=== PATIENT | male | born 1945 | race Caucasian/White ===

== ENCOUNTER 2023-02-03 20:11 | Inpatient (IN) | payer OTHER ==
[~2023-02-03] VITALS: Ht 172.7 cm; Wt 80.8 kg
[~2023-02-03 20:11] MED LIST: ALLO-97 PO; ASPI-1450 PO; ATOR40TA28 PO; CALC0.253 PO; CARV25 PO; DOCU-385 PO; FLUO10CA24 PO; FOLI0.8T21 PO; FURO80 PO; GENT30CR TP; INSU100V SQ; LEVE500T8 PO; LOSA-381 PO; NPH,100V SQ; OMEP20 PO; ONDA-104 PO; SENN-376 PO; SEVE0.8P6 PO; [UNRECOGNIZED DRUG - CODE] TP
[2023-02-03] MEDS ORDERED: PIPERACILLIN/TAZO 3.375 GM/D5W 50 ML IV ONE (20:30)
[2023-02-03] MEDS ORDERED: 0.9% SODIUM CHLORIDE 10 ML SYRINGE IVP PRN (20:30)
[2023-02-03] MEDS ORDERED: SODIUM CHLORIDE 0.9% 2,000 ML IV ONE (20:30)
[2023-02-03] MEDS ORDERED: ACETAMINOPHEN 1000 MG/ISO-OSM 100 ML IV ONE (20:45)
[2023-02-03 21:21] LABS: BASOPHILS % (AUTO) 0.7 % (0.0-2.0); EOSINOPHILS % (AUTO) 3.8 % (1.0-6.0); HEMATOCRIT 31.5 % (41-53); HEMOGLOBIN 10.2 g/dL (13.5-17.5); LYMPHOCYTES # (AUTO) 3.7 K/uL (1.0-4.8); LYMPHOCYTES % (AUTO) 38.3 % (22.0-44.0); MEAN CORPUSCULAR HEMOGLOBIN 33.3 pg (26.0-34.0); MEAN CORPUSCULAR HGB CONC 32.2 G/dL (31.0-37.0); MEAN CORPUSCULAR VOLUME 104 fL (80-100); MONOCYTES # (AUTO) 0.7 K/uL (0.1-1.0); MONOCYTES % (AUTO) 7.4 % (2.0-9.0); NEUTROPHILS # (AUTO) 4.8 K/uL (1.8-7.7); NEUTROPHILS % (AUTO) 49.8 % (40.0-70.0); PLATELET COUNT (AUTO) 319 K/uL (150-450); RED BLOOD CELL COUNT(AUTO) 3.05 MIL/uL (4.50-5.90); RED CELL DISTRIBUTION WIDTH 17.1 % (11.5-14.5); WHITE BLOOD COUNT (AUTO) 9.6 K/uL (4.5-11.0)
[2023-02-03 21:30] LABS: CALCIUM, TOTAL 9.4 mg/dL (8.8-10.5); CREATININE 11.4 mg/dL (0.60-1.30); POTASSIUM 4.9 mmol/L (3.5-5.1)
[2023-02-03 21:32] LABS: INR 0.9 (0.9-1.1); PROTHROMBIN TIME 9.8 SEC (9.4-11.6)
[2023-02-03 21:38] LABS: LACTIC ACID 0.9 mmol/L (0.4-2.0)
[2023-02-03 21:41] LABS: TROPONIN I-HIGH SENSITIVITY 90 ng/L (<76)
[2023-02-03 21:45] LABS: ALBUMIN 2.1 g/dL (3.4-5.0); BILIRUBIN,TOTAL 0.3 mg/dL (0.1-1.0); TOTAL PROTEIN, SERUM 5.7 g/dL (6.4-8.2)
[2023-02-03] MEDS ORDERED: ACETAMINOPHEN 325 MG TABLET PO PRN (22:00)
[2023-02-03] MEDS ORDERED: DEXTROSE 50%-WATER 25 GM/50 ML SYRINGE IVP PRN (22:00)
[2023-02-03] MEDS ORDERED: SENNOSIDES 8.6 MG TABLET PO PRN (22:00)
[2023-02-03] MEDS: NiCARDipine HCL 25 MG in SODIUM CHLORIDE 0.9% 240 ML IV PRN (22:26)
[2023-02-03] MEDS ORDERED: ASPIRIN 81 MG CHEWABLE TABLET PO ONE (22:30)
[2023-02-03 22:47] LABS: APPEARANCE,URINE CLEAR (CLEAR); BILIRUBIN,URINE NEGATIVE (NEGATIVE); COLOR,URINE LIGHT YELLOW (YELLOW); GLUCOSE, URINE (UA) 150-200 mg/dL (NEGATIVE); KETONES,URINE NEGATIVE (NEGATIVE); LEUKOCYTE ESTERASE ,URINE NEGATIVE (NEGATIVE); NITRATE,URINE NEGATIVE (NEGATIVE); OCCULT BLOOD,URINE MODERATE (NEGATIVE); PH,URINE 7.5 (5.0-8.0); PROTEIN,URINE >600,SEE CONFIRM mg/dL (NEGATIVE); SPECIFIC GRAVITIY, URINE 1.012 (1.003-1.030); UROBILINOGEN,URINE <=1.0 mg/dL (<=1.0)
[2023-02-03 22:49] LABS: COVID AG,FIA SOURCE NASOPHARYNGEAL
[2023-02-03 22:55] LABS: BACTERIA,URINE None Seen /HPF (None Seen); SQUAMOUS EPITHELIAL CELL,UR None Seen /LPF (None Seen); SULFOSALICYLIC ACID,URINE 3+ (Negative); WBC,URINE None Seen /HPF (0-5)
[2023-02-03] MEDS: HEPARIN SODIUM,PORCINE 5,000 UNITS/ML VIAL SQ SCH (22:59)
[2023-02-03 23:10] LABS: SARS-COV2 (COVID) ANTIGEN,FIA Negative (Negative)
[2023-02-03 23:12] LABS: INFLUENZA TYPE A NEGATIVE FOR TYPE A (NEGATIVE); INFLUENZA TYPE B NEGATIVE FOR TYPE B (NEGATIVE)
[2023-02-04 01:04] LABS: TROPONIN I-HIGH SENSITIVITY 120 ng/L (<76)
[2023-02-04 04:30] LABS: TROPONIN I-HIGH SENSITIVITY 105 ng/L (<76)
[2023-02-04] MEDS: NiCARDipine HCL 25 MG in SODIUM CHLORIDE 0.9% 240 ML IV PRN (07:27)
[2023-02-04] MEDS: SEVELAMER CARBONATE 800 MG TABLET PO SCH ×3 (08:00→18:21)
[2023-02-04] MEDS: HEPARIN SODIUM,PORCINE 5,000 UNITS/ML VIAL SQ SCH ×2 (08:00→16:09)
[2023-02-04] MEDS: INSULIN GLARGINE,HUM.REC.ANLOG 100 UNITS/ML SQ SCH ×2 (09:00→21:00)
[2023-02-04] MEDS: CARVEDILOL 25 MG TABLET PO SCH ×2 (09:00→21:27)
[2023-02-04] MEDS: ONDANSETRON HCL 4 MG TABLET PO SCH ×2 (09:00→21:27)
[2023-02-04 11:52] VITALS: BP 138/88; PULSE 69; RESP 18; TEMP 97.5
[2023-02-04] MEDS: OMEPRAZOLE 20 MG CAPSULE PO SCH (13:27)
[2023-02-04] MEDS: LevETIRAcetam 500 MG TABLET PO SCH ×2 (13:28→21:27)
[2023-02-04] MEDS: ATORVASTATIN CALCIUM 40 MG TABLET PO SCH (13:28)
[2023-02-04] MEDS: AmLODIPine BESYLATE 10 MG TABLET PO SCH (13:29)
[2023-02-04] MEDS: LOSARTAN POTASSIUM 25 MG TABLET PO SCH (13:29)
[2023-02-04] MEDS: DOCUSATE SODIUM 100 MG CAPSULE PO SCH ×2 (13:29→21:27)
[2023-02-04] MEDS: ASPIRIN 81 MG CHEWABLE TABLET PO SCH (13:29)
[2023-02-04] MEDS: FUROSEMIDE 80 MG TABLET PO SCH ×2 (14:38→21:27)
[2023-02-04] MEDS: FLUoxetine HCL 10 MG CAPSULE PO SCH (14:38)
[2023-02-04] MEDS: ALLOPURINOL 100 MG TABLET PO SCH (14:39)
[2023-02-04] MEDS: CALCITRIOL 0.25 MCG CAPSULE PO SCH (14:39)
[2023-02-04] MEDS: FOLIC ACID/VIT B COMPLEX AND C TABLET PO SCH (16:09)
[2023-02-04] MEDS: BETAMETHASONE VAL 0.1% 15 GM CREAM TP SCH ×2 (16:14→21:28)
[2023-02-04] MEDS: GENTAMICIN SULFATE 0.1% 15 GM CREAM TP SCH (16:15)
[2023-02-04 20:04] VITALS: BP 168/74; PULSE 64; RESP 16; TEMP 98.2
[2023-02-05] VITALS (8 sets, daily range): BP systolic 135–200; BP diastolic 59–85; PULSE 59–80; RESP 17–20; TEMP 97.4–98
[2023-02-05] MEDS: HEPARIN SODIUM,PORCINE 5,000 UNITS/ML VIAL SQ SCH ×3 (00:37→15:44)
[2023-02-05] MEDS: INSULIN LISPRO 100 UNITS/ML SQ PRN (06:52)
[2023-02-05] MEDS: OMEPRAZOLE 20 MG CAPSULE PO SCH (08:31)
[2023-02-05] MEDS: FOLIC ACID/VIT B COMPLEX AND C TABLET PO SCH (08:33)
[2023-02-05] MEDS: AmLODIPine BESYLATE 10 MG TABLET PO SCH (08:33)
[2023-02-05] MEDS: LOSARTAN POTASSIUM 25 MG TABLET PO SCH ×2 (08:37→20:35)
[2023-02-05] MEDS: ASPIRIN 81 MG CHEWABLE TABLET PO SCH (08:37)
[2023-02-05] MEDS: LevETIRAcetam 500 MG TABLET PO SCH ×2 (08:37→20:35)
[2023-02-05] MEDS: ATORVASTATIN CALCIUM 40 MG TABLET PO SCH (08:37)
[2023-02-05] MEDS: CALCITRIOL 0.25 MCG CAPSULE PO SCH (08:37)
[2023-02-05] MEDS: FLUoxetine HCL 10 MG CAPSULE PO SCH (08:37)
[2023-02-05] MEDS: SEVELAMER CARBONATE 800 MG TABLET PO SCH ×3 (08:37→18:05)
[2023-02-05] MEDS: ALLOPURINOL 100 MG TABLET PO SCH (08:37)
[2023-02-05] MEDS: ONDANSETRON HCL 4 MG TABLET PO SCH ×2 (08:38→20:35)
[2023-02-05] MEDS: CARVEDILOL 25 MG TABLET PO SCH ×2 (08:38→20:35)
[2023-02-05] MEDS: FUROSEMIDE 80 MG TABLET PO SCH ×2 (08:38→20:35)
[2023-02-05 08:46] LABS: GLUCOMETER DEV NAME(LOC) 5S.2C; GLUCOSE,POINT OF CARE 115 MG/DL (70-110)
[2023-02-05 08:46] LABS: GLUCOMETER DEV NAME(LOC) 5S.1B; GLUCOSE,POINT OF CARE 138 MG/DL (70-110)
[2023-02-05 08:46] LABS: GLUCOMETER DEV NAME(LOC) 5S.2C; GLUCOSE,POINT OF CARE 126 MG/DL (70-110)
[2023-02-05] MEDS: DOCUSATE SODIUM 100 MG CAPSULE PO SCH ×2 (08:47→20:35)
[2023-02-05] MEDS: GENTAMICIN SULFATE 0.1% 15 GM CREAM TP SCH (09:00)
[2023-02-05] MEDS: BETAMETHASONE VAL 0.1% 15 GM CREAM TP SCH ×2 (09:00→20:51)
[2023-02-05 09:26] LABS: BASOPHILS % (AUTO) 0.6 % (0.0-2.0); EOSINOPHILS % (AUTO) 3.8 % (1.0-6.0); HEMATOCRIT 33.8 % (41-53); HEMOGLOBIN 10.8 g/dL (13.5-17.5); LYMPHOCYTES % (AUTO) 25.9 % (22.0-44.0); MEAN CORPUSCULAR HEMOGLOBIN 32.9 pg (26.0-34.0); MEAN CORPUSCULAR HGB CONC 31.9 G/dL (31.0-37.0); MEAN CORPUSCULAR VOLUME 103 fL (80-100); MONOCYTES # (AUTO) 0.9 K/uL (0.1-1.0); MONOCYTES % (AUTO) 8.1 % (2.0-9.0); NEUTROPHILS # (AUTO) 7.1 K/uL (1.8-7.7); NEUTROPHILS % (AUTO) 61.6 % (40.0-70.0); PLATELET COUNT (AUTO) 314 K/uL (150-450); RED BLOOD CELL COUNT(AUTO) 3.28 MIL/uL (4.50-5.90); RED CELL DISTRIBUTION WIDTH 16.9 % (11.5-14.5); WHITE BLOOD COUNT (AUTO) 11.5 K/uL (4.5-11.0)
[2023-02-05 09:29] LABS: RBC MORPHOLOGY COMMENT ABNORMAL RBC MORPH
[2023-02-05] MEDS ORDERED: GENTAMICIN SULFATE 0.1% 15 GM CREAM TP SCH (09:30)
[2023-02-05 09:39] LABS: CALCIUM, TOTAL 9.3 mg/dL (8.8-10.5); CREATININE 10.36 mg/dL (0.60-1.30); POTASSIUM 4.4 mmol/L (3.5-5.1)
[2023-02-05 09:43] LABS: PHOSPHORUS 4.7 mg/dL (2.5-4.9)
[2023-02-05] MEDS: INSULIN GLARGINE,HUM.REC.ANLOG 100 UNITS/ML SQ SCH ×2 (12:26→20:38)
[2023-02-05] MEDS: CloNIDine HCL 0.1 MG TABLET PO PRN (12:38)
[2023-02-05 15:41] LABS: GLUCOMETER DEV NAME(LOC) 5N.1C; GLUCOSE,POINT OF CARE 88 MG/DL (70-110)
[2023-02-05 15:41] LABS: GLUCOMETER DEV NAME(LOC) 5N.1C; GLUCOSE,POINT OF CARE 371 MG/DL (70-110)
[2023-02-05 16:55] LABS: GLUCOMETER DEV NAME(LOC) 5N.1C; GLUCOSE,POINT OF CARE 100 MG/DL (70-110)
[2023-02-06] VITALS (8 sets, daily range): BP systolic 128–162; BP diastolic 57–81; PULSE 60–77; RESP 18–19; TEMP 97.5–98.2
[2023-02-06] MEDS: HEPARIN SODIUM,PORCINE 5,000 UNITS/ML VIAL SQ SCH ×3 (00:45→17:41)
[2023-02-06] MEDS: CloNIDine HCL 0.1 MG TABLET PO PRN (01:31)
[2023-02-06] MEDS: INSULIN LISPRO 100 UNITS/ML SQ PRN ×4 (06:21→20:48)
[2023-02-06] MEDS: DOCUSATE SODIUM 100 MG CAPSULE PO SCH ×2 (08:43→20:37)
[2023-02-06] MEDS: AmLODIPine BESYLATE 10 MG TABLET PO SCH (08:43)
[2023-02-06] MEDS: LevETIRAcetam 500 MG TABLET PO SCH ×2 (08:43→20:37)
[2023-02-06] MEDS: SEVELAMER CARBONATE 800 MG TABLET PO SCH ×3 (08:43→17:59)
[2023-02-06] MEDS: ASPIRIN 81 MG CHEWABLE TABLET PO SCH (08:43)
[2023-02-06] MEDS: ONDANSETRON HCL 4 MG TABLET PO SCH ×2 (08:44→20:37)
[2023-02-06] MEDS: FLUoxetine HCL 10 MG CAPSULE PO SCH (08:44)
[2023-02-06] MEDS: LOSARTAN POTASSIUM 25 MG TABLET PO SCH ×2 (08:44→20:38)
[2023-02-06] MEDS: FOLIC ACID/VIT B COMPLEX AND C TABLET PO SCH (08:44)
[2023-02-06] MEDS: CARVEDILOL 25 MG TABLET PO SCH ×2 (08:44→20:37)
[2023-02-06] MEDS: ALLOPURINOL 100 MG TABLET PO SCH (08:44)
[2023-02-06] MEDS: OMEPRAZOLE 20 MG CAPSULE PO SCH (08:44)
[2023-02-06] MEDS: FUROSEMIDE 80 MG TABLET PO SCH ×2 (08:44→20:37)
[2023-02-06] MEDS: GENTAMICIN SULFATE 0.1% 15 GM CREAM TP SCH (08:45)
[2023-02-06] MEDS: BETAMETHASONE VAL 0.1% 15 GM CREAM TP SCH ×2 (08:45→20:39)
[2023-02-06] MEDS ORDERED: CALCITRIOL 0.25 MCG CAPSULE PO ONE (09:00)
[2023-02-06] MEDS: INSULIN GLARGINE,HUM.REC.ANLOG 100 UNITS/ML SQ SCH ×2 (09:06→20:47)
[2023-02-06] MEDS: ATORVASTATIN CALCIUM 40 MG TABLET PO SCH (09:10)
[2023-02-06 17:26] LABS: GLUCOMETER DEV NAME(LOC) 5N.2C; GLUCOSE,POINT OF CARE 233 MG/DL (70-110)
[2023-02-06 17:26] LABS: GLUCOMETER DEV NAME(LOC) 5N.2C; GLUCOSE,POINT OF CARE 263 MG/DL (70-110)
[2023-02-06 17:26] LABS: GLUCOMETER DEV NAME(LOC) 5N.2C; GLUCOSE,POINT OF CARE 178 MG/DL (70-110)
[2023-02-06 21:51] LABS: GLUCOMETER DEV NAME(LOC) 5S.1B; GLUCOSE,POINT OF CARE 210 MG/DL (70-110)
[2023-02-07] VITALS (8 sets, daily range): BP systolic 115–185; BP diastolic 51–90; PULSE 63–74; RESP 18–20; TEMP 97.7–98.8
[2023-02-07] MEDS: HEPARIN SODIUM,PORCINE 5,000 UNITS/ML VIAL SQ SCH ×4 (01:38→23:21)
[2023-02-07] MEDS: INSULIN LISPRO 100 UNITS/ML SQ PRN ×4 (05:55→20:05)
[2023-02-07] MEDS: DOCUSATE SODIUM 100 MG CAPSULE PO SCH ×2 (08:40→20:09)
[2023-02-07] MEDS: SEVELAMER CARBONATE 800 MG TABLET PO SCH ×3 (08:40→18:14)
[2023-02-07] MEDS: LevETIRAcetam 500 MG TABLET PO SCH ×2 (08:40→20:09)
[2023-02-07] MEDS: OMEPRAZOLE 20 MG CAPSULE PO SCH (08:40)
[2023-02-07] MEDS: FOLIC ACID/VIT B COMPLEX AND C TABLET PO SCH (08:40)
[2023-02-07] MEDS: AmLODIPine BESYLATE 10 MG TABLET PO SCH (08:40)
[2023-02-07] MEDS: ASPIRIN 81 MG CHEWABLE TABLET PO SCH (08:41)
[2023-02-07] MEDS: ATORVASTATIN CALCIUM 40 MG TABLET PO SCH (08:41)
[2023-02-07] MEDS: LOSARTAN POTASSIUM 25 MG TABLET PO SCH ×2 (08:41→20:09)
[2023-02-07] MEDS: INSULIN GLARGINE,HUM.REC.ANLOG 100 UNITS/ML SQ SCH ×2 (08:43→20:06)
[2023-02-07] MEDS: BETAMETHASONE VAL 0.1% 15 GM CREAM TP SCH ×3 (09:00→20:09)
[2023-02-07] MEDS: GENTAMICIN SULFATE 0.1% 15 GM CREAM TP SCH ×2 (09:00→09:26)
[2023-02-07] MEDS: CARVEDILOL 25 MG TABLET PO SCH ×2 (09:26→20:09)
[2023-02-07] MEDS: FUROSEMIDE 80 MG TABLET PO SCH ×2 (09:26→20:09)
[2023-02-07] MEDS: ONDANSETRON HCL 4 MG TABLET PO SCH ×2 (09:26→20:09)
[2023-02-07] MEDS: FLUoxetine HCL 10 MG CAPSULE PO SCH (09:26)
[2023-02-07] MEDS: ALLOPURINOL 100 MG TABLET PO SCH (09:26)
[2023-02-07 11:36] LABS: GLUCOMETER DEV NAME(LOC) 5S.2C; GLUCOSE,POINT OF CARE 154 MG/DL (70-110)
[2023-02-07 11:36] LABS: GLUCOMETER DEV NAME(LOC) 5S.2C; GLUCOSE,POINT OF CARE 240 MG/DL (70-110)
[2023-02-07 11:36] LABS: GLUCOMETER DEV NAME(LOC) 5S.2C; GLUCOSE,POINT OF CARE 267 MG/DL (70-110)
[2023-02-07 11:37] LABS: GLUCOMETER DEV NAME(LOC) 5S.2C; GLUCOSE,POINT OF CARE 275 MG/DL (70-110)
[2023-02-07] MEDS ORDERED: SODIUM CHLORIDE 0.9% 250 ML IV ONE (13:43)
[2023-02-08 00:46] LABS: GLUCOMETER DEV NAME(LOC) 6N.2B; GLUCOSE,POINT OF CARE 285 MG/DL (70-110)
[2023-02-08 03:28] VITALS: BP 136/69; PULSE 78; RESP 18; TEMP 97.6
[2023-02-08] MEDS: INSULIN LISPRO 100 UNITS/ML SQ PRN ×2 (05:19→12:40)
[2023-02-08 06:00] LABS: BASOPHILS % (AUTO) 0.5 % (0.0-2.0); EOSINOPHILS % (AUTO) 4.8 % (1.0-6.0); HEMATOCRIT 27.1 % (41-53); LYMPHOCYTES # (AUTO) 3.3 K/uL (1.0-4.8); LYMPHOCYTES % (AUTO) 31.4 % (22.0-44.0); MEAN CORPUSCULAR HEMOGLOBIN 34.2 pg (26.0-34.0); MEAN CORPUSCULAR HGB CONC 33.4 G/dL (31.0-37.0); MEAN CORPUSCULAR VOLUME 103 fL (80-100); MONOCYTES # (AUTO) 0.7 K/uL (0.1-1.0); MONOCYTES % (AUTO) 6.6 % (2.0-9.0); NEUTROPHILS # (AUTO) 5.9 K/uL (1.8-7.7); NEUTROPHILS % (AUTO) 56.7 % (40.0-70.0); PLATELET COUNT (AUTO) 280 K/uL (150-450); RED BLOOD CELL COUNT(AUTO) 2.64 MIL/uL (4.50-5.90); RED CELL DISTRIBUTION WIDTH 16.8 % (11.5-14.5); WHITE BLOOD COUNT (AUTO) 10.4 K/uL (4.5-11.0)
[2023-02-08 06:08] LABS: CALCIUM, TOTAL 8.5 mg/dL (8.8-10.5); CREATININE 9.14 mg/dL (0.60-1.30); POTASSIUM 4.3 mmol/L (3.5-5.1)
[2023-02-08 07:25] LABS: GLUCOMETER DEV NAME(LOC) 6N.2B; GLUCOSE,POINT OF CARE 236 MG/DL (70-110)
[2023-02-08 08:35] VITALS: BP 103/65; PULSE 66; RESP 18; TEMP 98.1
[2023-02-08] MEDS: INSULIN GLARGINE,HUM.REC.ANLOG 100 UNITS/ML SQ SCH (08:36)
[2023-02-08] MEDS: HEPARIN SODIUM,PORCINE 5,000 UNITS/ML VIAL SQ SCH ×2 (08:37→15:54)
[2023-02-08] MEDS: FOLIC ACID/VIT B COMPLEX AND C TABLET PO SCH (08:38)
[2023-02-08] MEDS: OMEPRAZOLE 20 MG CAPSULE PO SCH (08:38)
[2023-02-08] MEDS: CARVEDILOL 25 MG TABLET PO SCH (08:40)
[2023-02-08] MEDS: ALLOPURINOL 100 MG TABLET PO SCH (08:40)
[2023-02-08] MEDS: FLUoxetine HCL 10 MG CAPSULE PO SCH (08:40)
[2023-02-08] MEDS: DOCUSATE SODIUM 100 MG CAPSULE PO SCH (08:40)
[2023-02-08] MEDS: LevETIRAcetam 500 MG TABLET PO SCH (08:41)
[2023-02-08] MEDS: SEVELAMER CARBONATE 800 MG TABLET PO SCH ×2 (08:41→12:06)
[2023-02-08] MEDS: ATORVASTATIN CALCIUM 40 MG TABLET PO SCH (08:41)
[2023-02-08] MEDS: AmLODIPine BESYLATE 10 MG TABLET PO SCH (08:41)
[2023-02-08] MEDS: ASPIRIN 81 MG CHEWABLE TABLET PO SCH (08:42)
[2023-02-08] MEDS: LOSARTAN POTASSIUM 25 MG TABLET PO SCH (08:42)
[2023-02-08] MEDS: ONDANSETRON HCL 4 MG TABLET PO SCH (08:42)
[2023-02-08] MEDS: FUROSEMIDE 80 MG TABLET PO SCH (08:42)
[2023-02-08] MEDS: GENTAMICIN SULFATE 0.1% 15 GM CREAM TP SCH (08:43)
[2023-02-08] MEDS: BETAMETHASONE VAL 0.1% 15 GM CREAM TP SCH (08:43)
[2023-02-08 12:01] LABS: GLUCOMETER DEV NAME(LOC) 4E.2; GLUCOSE,POINT OF CARE 146 MG/DL (70-110)
[2023-02-08 12:01] LABS: GLUCOMETER DEV NAME(LOC) 4E.2; GLUCOSE,POINT OF CARE 280 MG/DL (70-110)
[2023-02-08] MEDS ORDERED: AMLO-258 PO (12:14)
[2023-02-08] MEDS ORDERED: HEPA500018 SQ (12:15)
[2023-02-08] MEDS ORDERED: INSLAN SQ (12:16)
[2023-02-08] MEDS ORDERED: LOSA-382 PO (12:16)
[2023-02-08] MEDS ORDERED: ACET650S24 PR (12:17)
[2023-02-08] MEDS ORDERED: CLON0.1T2 PO (12:18)
[2023-02-08] MEDS ORDERED: INSU100V SQ (12:19)
[2023-02-08] MEDS ORDERED: SENN-376 PO (12:20)
[2023-02-08 14:57] VITALS: BP 145/57; PULSE 67; RESP 18; TEMP 98.3
[2023-02-08 22:36] LABS: GLUCOMETER DEV NAME(LOC) 6N.2B; GLUCOSE,POINT OF CARE 239 MG/DL (70-110)
[2023-02-09] MEDS ORDERED: EPOETIN ALFA 10,000 UNITS/ML VIAL SQ SCH (09:00)
== END 2023-02-08 19:25 | disposition short-term general hospital (02) | DRG 871 ==
LOC: EMS 20:11 → EDUNIT# 20:11 → ICU 02-04 06:46 → AHU 02-04 09:35 → 5S 02-04 10:03 → 6S 02-07 14:36
PROVIDERS: ADMIT Internal Medicine; ATTEND Internal Medicine
PROC: 3E1M39Z Irrigation of Peritoneal Cavity using Dialysate, Percutaneous Approach (ICD-10-PCS; principal; 2023-02-04)
PROC: 3E1M39Z Irrigation of Peritoneal Cavity using Dialysate, Percutaneous Approach (ICD-10-PCS; 2023-02-05)
PROC: 3E1M39Z Irrigation of Peritoneal Cavity using Dialysate, Percutaneous Approach (ICD-10-PCS; 2023-02-06)
PROC: 3E1M39Z Irrigation of Peritoneal Cavity using Dialysate, Percutaneous Approach (ICD-10-PCS; 2023-02-07)
DX: A41.9 Sepsis, unspecified organism (principal); G92.8 Other toxic encephalopathy; I21.A1 Myocardial infarction type 2; N18.6 End stage renal disease; I16.1 Hypertensive emergency; E44.0 Moderate protein-calorie malnutrition; I12.0 Hypertensive chronic kidney disease with stage 5 chronic kidney disease or end stage renal disease; F03.93 Unspecified dementia, unspecified severity, with mood disturbance; Z20.822 Contact with and (suspected) exposure to COVID-19; G40.909 Epilepsy, unspecified, not intractable, without status epilepticus; D63.8 Anemia in other chronic diseases classified elsewhere; E11.51 Type 2 diabetes mellitus with diabetic peripheral angiopathy without gangrene; E11.22 Type 2 diabetes mellitus with diabetic chronic kidney disease; D63.1 Anemia in chronic kidney disease; M10.9 Gout, unspecified; E78.5 Hyperlipidemia, unspecified; F32.9 Major depressive disorder, single episode, unspecified; Z68.26 Body mass index [BMI] 26.0-26.9, adult; Z79.4 Long term (current) use of insulin; Z79.82 Long term (current) use of aspirin; Z79.899 Other long term (current) drug therapy; Z88.6 Allergy status to analgesic agent; Z88.1 Allergy status to other antibiotic agents; Z88.8 Allergy status to other drugs, medicaments and biological substances; Z99.2 Dependence on renal dialysis; Z86.73 Personal history of transient ischemic attack (TIA), and cerebral infarction without residual deficits
CPT/HCPCS: 51701; 71045; 74176; 80048; 80053; 81001; 81002; 82140; 82962; 83605; 83690; 83735; 83880; 84100; 84145; 84484; 85025; 85610; 86850; 86900; 86901; 87040; 87075; 87205; 87804; 90945; 92526; 92610; 93005; 93306; 97112; 97163; 97167; 97530; 97535; 99291; J0131; J0885; J1644; J1815; J2543; J3490; J7030; J7050; Q0162; 36415-L1; 36415-TC; 70450; 70450-TC; 87070